=== PATIENT | female | born 1995 | race Caucasian/White ===

== ENCOUNTER 2021-06-11 14:22 | Outpatient (CLI) | payer BC | END 2021-06-11 14:23 | disposition home or self-care (01) | LOC: CSHCP 14:22 | PROVIDERS: ATTEND Student in an Organized Health Care Education/Training Program | DX: J45.40 Moderate persistent asthma, uncomplicated (principal); R94.2 Abnormal results of pulmonary function studies | CPT/HCPCS: 94060; 94760 ==